=== PATIENT | female | born 1990 | race Caucasian/White ===

== ENCOUNTER 2024-07-20 13:29 | Emergency (ER) | payer OTHER, SELFPAY ==
[2024-07-20 13:37] VITALS: BP 121/73
[2024-07-20 14:06] LABS: % Basophils 0.4 % (0-2); % Eosinophils 1.3 % (0-6); % Immature Granulocytes 0.3 % (0-0.5); % Lymphocytes 27.8 % (20.5-51.1); % Monocytes 8.3 % (1.7-9.3); % Neutrophils 61.9 % (42.2-75.2); Absolute Eosinophils 0.1 10^3/uL (0-0.7); Absolute Monocytes 0.6 10^3/uL (0.1-0.6); Absolute Neutrophils 4.4 10^3/uL (1.4-6.5); Hematocrit 41.8 % (37.0-47.0); Hemoglobin 14.2 g/dL (12.0-16.0); Mean Corpuscular Hgb 29.6 pg (27.0-31.0); Mean Corpuscular Volume 87.3 fL (81.0-99.0); Nucleated Red Blood Cells % 0 %; Platelet Count 286 10^3/uL (130-400); Red Blood Cell Count 4.79 10^6/uL (4.20-5.40); Red Cell Dist. Width 13.5 % (11.5-14.5); White Blood Cell Count 7.1 10^3/uL (4.8-10.8)
[2024-07-20 14:09] LABS: Urine Albumin Negative (Neg - Trace); Urine Bilirubin Negative (Negative); Urine Character Clear (Clear); Urine Color Yellow; Urine Glucose Negative (Negative); Urine Ketone Negative (Negative); Urine Leukocyte Negative (Negative); Urine Nitrite Negative (Negative); Urine Occult Blood Negative (Negative); Urine Urobilinogen Negative (Neg - 1+)
[2024-07-20 14:21] LABS: ALT (SGPT) 18 U/L (0-35); AST (SGOT) 21 U/L (14-36); Albumin 4.4 g/dl (3.5-5.0); Alkaline Phosphatase 48 U/L (38-126); Blood Urea Nitrogen 11 mg/dl (7-17); Carbon Dioxide 24 mmol/L (22-30); Chloride 110 mmol/L (98-107); Glucose 96 mg/dl (70-99); Potassium 4.4 mmol/L (3.5-5.1); Sodium 141 mmol/L (135-145); Total Bilirubin 0.6 mg/dl (0.2-1.3); Total Protein 7.2 g/dl (6.3-8.2); eGFR > 60.00
[2024-07-20 14:32] LABS: Troponin I < 0.012 ng/ml
[2024-07-20 14:52] LABS: TSH 0.95 uIU/ml (0.47-4.68)
[2024-07-20 17:10] LABS: D-Dimer < 0.27 ug/mlFEU (0.00-0.50)
[2024-07-20 17:15] VITALS: BP 114/62
--- NOTE | 2024-07-20 17:28 | ED.GENMED ---
History of Present Illness
General
Chief Complaint: Cardiac Symptoms
Time Seen by Provider: 07/20/24 15:51
History of Present Illness
History of Present Illness:
34-year-old female with history of asthma presenting to the emergency department for multiple complaints. She notes in the past several weeks she has been having some intermittent left-sided chest pain, jaw pain. Also notes occasional
lightheadedness. Does admit to poor hydration throughout the day. Denies difficulty breathing. Notes family history of cardiac disease. Denies abdominal pain or GI symptoms. Does feel that she has been urinate more frequently than her water
intake. Denies fever. Denies any personal history of cardiac disease. Denies any additional acute medical complaints.
Phy Exam
Physical Exam
Physical Exam:
General: Well-appearing, no clinical signs of dehydration, nontoxic and in no acute distress
HEENT: protecting airway
Neck: appears supple
CV: Normal heart rate, regular rhythm
Resp: No accessory muscle use, no increased work of breathing, lungs clear to auscultation bilaterally
Abd: No distention
Extremities: No deformities, no swelling
Neuro: alert, no focal neurologic deficit
: deferred
Rectal: deferred
Psych: Normal affect
Skin: Intact
Course
Orders/Labs/Results
Orders:
Orders
07/20/24 13:44
ECG [Electrocardiogram (*1)] Urgent
Reason for Study: Palpitations
EKG- Treatment ONCE
07/20/24 13:57
Complete Blood Count/With Diff Urgent
Comprehensive Metabolic Panel Urgent
TSH Urgent
Troponin I Urgent
07/20/24 13:58
Urinalysis Reflex To Culture Urgent
Date Specimen was Collected: 07/20/24
Time Specimen was Collected: 13:58
07/20/24 16:48
D-Dimer Urgent
Abnormal Lab Results
07/20/24
13:57
Chloride 110 H mmol/L
(98-107)
07/20/24 13:57
07/20/24 13:57
Vital Signs
Initial and Last Documented VS:
Initial Vital Signs
Temp Pulse Resp BP Pulse Ox
98.2 F 79 16 121/73 99
07/20/24 13:37 07/20/24 13:37 07/20/24 13:37 07/20/24 13:37 07/20/24 13:37
Last Documented Vital Signs
Temp Pulse Resp BP Pulse Ox
98.2 F 58 16 114/62 98
07/20/24 13:37 07/20/24 17:15 07/20/24 17:15 07/20/24 17:15 07/20/24 17:15
MDM/Problems Addressed
MDM/Problems Addressed:
34-year-old female presenting to the emergency department for left-sided chest pain and jaw pain as well as lightheadedness. Vital signs on arrival are normal.
On exam patient is resting comfortably, no acute distress or discomfort. Patient has ongoing symptoms for several weeks. EKG obtained on arrival, nonischemic. Patient without any significant cardiac risk factor. Without concern for ACS. Patient
does mention that she is on OCPs. Overall low suspicion for PE in the absence of respiratory symptoms, however will screen with D-dimer. Nursing protocol placed with laboratory analysis including troponin. Patient notes increased urinary
frequency, will send urinalysis. Notes occasional lightheadedness upon standing, likely basal component. Does admit to poor oral hydration. No focal neurologic deficits on exam.
17:30 - Patient's labs are unremarkable, undetectable troponin, undetectable D-dimer. Urinalysis without any sign of infection or dehydration. is negative. At this time patient remained stable. Ultimately feel stable for discharge with
close interval follow-up with her primary care doctor. Return precautions discussed and patient verbalized understanding
*EKG
Interpreted by ED Provider?: Yes
EKG Intrepretation Date: 07/20/24
EKG Intrepretation Time: 17:30
Interpretation: normal
Heart Rate: 74
Rate: normal
Rhythm: sinus
Star: normal axis
Interval: normal interval
QRS Pattern: normal QRS
Ischemia: no ischemia
*Critical Care Note
Total Time (30-74mins, 75-104mins- exclusive of procedures): Not Applicable
ED Attending Note
-
Portions of this chart may have been created with voice recognition software.� Occasional wrong word or��sound alike� substitutions may have occurred due to the inherent limitations of voice recognition software.
Discharge Plan
Departure
Referrals:
Vj Campbell MD [Family Provider] -
Interventions
Interventions:
*Risk Screen - Suicide Last Done: 07/20/24 13:37
*General Assessment Last Done: 07/20/24 13:37
*Neglect/Abuse Screening Last Done: 07/20/24 17:15
*ED- Fall Risk Assessment Last Done: 07/20/24 17:15
*ED COVID-19 Vaccine History Last Done: 07/20/24 17:15
ED- Pulmonary Assessment Last Done: 07/20/24 17:15
ED- Cardiac Assessment Last Done: 07/20/24 17:15
Discharge Date and Time
Print Language: SYRIAC
== END 2024-07-20 17:40 | disposition home or self-care (01) ==
LOC: EMR 13:29
PROVIDERS: Student in an Organized Health Care Education/Training Program; EMERGENCY PHYSICIAN Student in an Organized Health Care Education/Training Program; FAMILY PHYSICIAN Family Medicine
DX: R07.89 Other chest pain (principal); R68.84 Jaw pain; R42 Dizziness and giddiness; R35.0 Frequency of micturition; J45.909 Unspecified asthma, uncomplicated; Z82.49 Family history of ischemic heart disease and other diseases of the circulatory system
CPT/HCPCS: 99283; 80053; 81003; 84443; 84484; 85025; 85379; 93005